=== PATIENT | male | born 1945 | race Caucasian/White ===

== ENCOUNTER 2018-12-04 09:52 | Inpatient (IN) | payer OTHER ==
[~2018-12-04] VITALS: Ht 182.9 cm; Wt 90.3 kg
--- NOTE | ~2018-12-04 | CON ---
[facility] [address] [place] [address] CONSULTATION Name: ANTONIA HUANG Room: [address] IN M.R.#: [id number] Admission: 12/04/18 Attend Phys: Suhas Olivo Discharge: 12/05/18 Date of : 49 Report #: [id number] THIS REPORT FOR: //name// CC: Donn Duran DATE OF SERVICE: 12/05/2018 CONSULTING PHYSICIAN: Dr. Olivo and Dr. Van. REASON FOR NEPHROLOGY CONSULTATION: End-stage renal disease, for maintenance of hemodialysis. REASON FOR ADMISSION: High INR. HISTORY OF PRESENT ILLNESS: This is a 73-year-old male with stage 4 pancreatic cancer, status post a few runs of gemcitabine that finally led to renal failure and has been on dialysis at least for the last month or so, came in when his home health checked his INR and was found to be 6.6. This morning, the patient refused dialysis. His regular dialysis days are Sunday, Sunday, Sunday and he missed his dialysis yesterday because he had to come to the hospital. There was no acute need for dialysis last evening, so we came to evaluate him this morning and there was plan to dialyze him this morning, but his and daughter are at his bedside and the patient himself as well ready for hospice and just to stay comfortable and not to do any dialysis. He has a left IJ tunneled dialysis catheter. ALLERGIES: CODEINE. REVIEW OF SYSTEMS: As mentioned in history of present illness. He is feeling alright this morning having his breakfast. HOME MEDICATIONS: Include Tylenol, amlodipine, atorvastatin, calcium carbonate, cefazolin, insulin lispro, vitamin B complex, oxycodone, sevelamer, sennosides, lidocaine, zolpidem, venlafaxine. PAST MEDICAL AND SURGICAL HISTORY: Include anxiety, neuropathy, hyperlipidemia, end-stage renal disease, malignant neoplasm of large intestine and rectum, diabetes type 2, disk degeneration, hyponatremia, acute kidney injury, has been on hemodialysis, cellulitis, unsteady gait, pancreatic cancer stage 4, infectious myositis, MRSA infection, generalized weakness, osteomyelitis right arm. FAMILY HISTORY: Noncontributory. SOCIAL HISTORY: The patient lives at home. No alcohol [place] [id number] CONSULTATION Name: ANTONIA HUANG Room: [address]#: [id number] Admission: 12/04/18 Attend Phys: Suhas Olivo Discharge: 12/05/18 Date of : 49 Report #: [id number] smoking. PHYSICAL EXAMINATION: VITAL SIGNS: Blood pressure is 119/74, respiratory rate is 19, pulse rate 56, temperature 36.8, pulse ox 97%. He is on room air. GENERAL: He is awake, alert and oriented x 3. HEAD: Atraumatic, normocephalic. EYES: Normal conjunctivae. EARS, NOSE, AND THROAT: Mucous membranes are moist. NECK: There is no JVD. CHEST: Bilaterally clear to auscultation anteriorly, no crackles or wheezing. CARDIOVASCULAR: S1, S2 normal. No murmurs are noted. ABDOMEN: Soft, nondistended, nontender. No masses felt. EXTREMITIES: Lower extremities, no edema. NEUROLOGIC: Grossly function seems to be intact. PSYCHIATRIC: Mood seems to be towards normal side. LABORATORY DATA: Hemoglobin is 9.7, potassium is 4.0 and other labs were reviewed. IMAGING: Chest x-ray was reviewed. ASSESSMENT: 1. Acute kidney injury, needing hemodialysis. This happened after chemotherapy and radiation for pancreatic cancer. 2. Stage 4 pancreatic cancer. 3. Supratherapeutic INR. 4. Stool for occult blood positive. PLAN: The patient's family as well as the patient himself has decided to stop dialysis and lean towards comfort measures and palliative care. I will respect their wishes and I think this is an appropriate decision at this point for him. We will sign off, but please call with any questions. Discussed with the patient's family and the patient's nurse. By: [id number] Thomas MD /nt
[~2018-12-04 09:52] MED LIST: AMBIEN 5 MG TABL5 M1 PO; ETODOLAC500 MG PO; GABAPENTIN 100100 MG PO; VENLAFAXIN75 MG/1 T2 PO
[2018-12-04 09:53] VITALS: BP 115/72
[2018-12-04] MEDS ORDERED: TYLENOL325 MG PO (10:14)
[2018-12-04] MEDS ORDERED: NORVASC10 MG PO (10:16)
[2018-12-04] MEDS ORDERED: ATORVASTATIN CA40 MG PO (10:16)
[2018-12-04 10:17] LABS: ABSOLUTE BASOPHILS 0.1 thou/uL (0.0-0.2); ABSOLUTE EOSINOPHILS 0.1 thou/uL (0.0-0.7); ABSOLUTE LYMPHOCYTES 0.7 thou/uL (0.8-5.3); ABSOLUTE MONOCYTES 0.8 thou/uL (0.0-1.2); ABSOLUTE NEUTROPHILS 8.2 thou/uL (1.6-8.1); BASOPHILS 0.5 %; EOSINOPHILS 1.5 %; HEMATOCRIT 30.1 % (42.0-52.0); HEMOGLOBIN 9.7 gm/dL (14.0-18.0); LYMPHOCYTES 7.3 %; MCH 28.1 pg (26.0-34.0); MCHC 32.2 g/dL (28.0-37.0); MCV 87.4 fL (80.0-100.0); MONOCYTES 8.4 %; MPV 7.9 fl. (7.2-11.1); NUCLEATED RBCS 0 /100WBC; PLATELET COUNT* 333 thou/uL (150-400); POLYS 82.3 %; RBC 3.44 mil/uL (4.50-6.00); RDW-CV 17.4 % (10.5-14.5); WBC 9.9 thou/uL (4.0-11.0)
[2018-12-04] MEDS ORDERED: TUMS PO (10:17)
[2018-12-04] MEDS ORDERED: ANCEF 1GM1 GM/50 M1 IVPB (10:18)
[2018-12-04] MEDS ORDERED: HUMALOG100 UNIT/1 SUBQ (10:18)
[2018-12-04] MEDS ORDERED: NEPHPLEX RX TA1 EACH PO (10:20)
[2018-12-04] MEDS ORDERED: OXYCODONE HCL 55 MG PO (10:21)
[2018-12-04] MEDS ORDERED: RENVELA800 MG PO (10:21)
[2018-12-04 10:22] LABS: ANION GAP 14 mmol/L (7-16); BUN 52 mg/dL (7-18); CHLORIDE 98 mmol/L (98-107); CO2 28 mmol/L (21-32); CREATININE 6.5 mg/dL (0.6-1.3); GLUCOSE 88 mg/dL (70-99); SODIUM 140 mmol/L (136-145)
[2018-12-04] MEDS ORDERED: LIDOCAINE PAIN1 EACH INTRADERM (10:22)
[2018-12-04] MEDS ORDERED: SENNA8.6 MG PO (10:22)
[2018-12-04 10:27] LABS: ALKALINE PHOSPHATASE 540 U/L (46-116); SGOT 56 U/L (15-37); TOTAL BILIRUBIN 0.5 mg/dL (<0.1-1.0); TOTAL PROTEIN 6.4 g/dL (6.4-8.2)
[2018-12-04 10:39] LABS: INR 3.9; PROTIME 39.5 Seconds (9.20-11.50)
[2018-12-04 10:58] LABS: BE 0.4 mmol/L (-2 to +3); PCO2 39.3 mmHg (35.0-45.0); PO2 69.1 mmHg (75.0-100.0); pH 7.418 (7.340-7.450)
[2018-12-04 14:04] LABS: SGPT < 6 U/L (30-65)
[2018-12-04 14:05] VITALS: BP 114/71
[2018-12-04 14:23] VITALS: BP 122/66
--- NOTE | 2018-12-04 15:37 | EKG ---
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 : 1945 Requested By: Katina Olivo Order Number: [id number] MD: Gage Ryan Measurements Intervals Deal Rate: 89 P: 3 MA: 118 QRS: 38 QRSD: 170 T: 2 QT: 404 QTc: 492 Interpretive Statements Sinus rhythm Atrial premature complexes Borderline short MA interval Right bundle branch block Compared to ECG 09/18/2016 12:56:12 Atrial premature complex(es) now present Atrial abnormality no longer present Electronically Signed On 12-04-2018 15:37:32 CDT by Gage Ryan [email or web address] <ELECTRONICALLY SIGNED> By: Gage Ryan MD, [facility] 12/04/18 1537 [id number] Gage Ryan MD, [facility] /EPI
--- NOTE | 2018-12-04 16:52 | NUR ---
PATIENT CAME TO THE FLOOR FROM THE ER VIA CART AND WAS SLID OVER TO HOSPITAL BED BY NURSES. VITAL SIGNS STABLE ON 2 LITERS OF OXYGEN THROUGH NASAL CANNULA. NO COMPLAINTS OF PAIN AT THIS TIME. ROOM ORIENTATION AND ADMISSION ASSESSMENT DONE. QUESTIONS ANSWERED FOR PATIENT AND SON. BED ALARM IS ON, CALL LIGHT IS IN REACH, WILL CONTINUE TO [place].
--- NOTE | 2018-12-04 17:42 | NUR ---
PATIENT IS ALERT AND ORIENTED TODAY. NO COMPLAINTS OF PAIN SINCE COMING TO THE FLOOR. VITAL SIGNS STABLE ON 2 LITERS OF OXYGEN THROUGH NASAL CANNULA. FAMILY HAS BEEN AT BEDSIDE SINCE COMING TO THE FLOOR. CALL LIGHT IS IN REACH, WILL CONTINUE TO MONITOR.
[2018-12-04 21:10] VITALS: BP 135/60
--- NOTE | 2018-12-05 05:58 | NUR ---
PT ALERT AND ORIENTED. VSS ON RA. PT TOKK HIS SLEEPING MED AND SLEPT MOST OF THE NIGHT. FAMILY WITH PT BEGINING OF SHIFT. Q2 TURN. FALL PRECAUTION IN PLACE. CONTACT ISOLATION IN PLACE. CALL LIGHT WITHIN REACH. HOURLY ROUNDINGS MADE. WILL CONTINUE PLAN OF CARE.
[2018-12-05 09:00] VITALS: BP 119/68
--- NOTE | 2018-12-05 12:25 | NUR ---
TRIXIE met with Catherine, nurse from [facility], who had just met with pt and pt family. Catherine informed SW that pt wishes are to return home today with Hospice, pt wants port removed and OHDNR. TRIXIE met with pt and pt family and confirmed pt dc plan and also spoke with Dr Van. TRIXEI faxed referral info, dc orders, and needed paperwork to hospice. TRIXIE called and discussed pt readiness to dc, had to leave message and awaiting call back to arrange time to arrange ambulance so that pt/family, ambulance and hospice care agency will be able to arrive at pt home at the same time.
--- NOTE | 2018-12-05 12:55 | NUR ---
P.T. ORDERS RECEIVED. CHART REVIEWED. SPOKE WITH NSG WHO INDICATED PT TO DISCHARGE HOME WITH HOSPICE. WILL DEFER EVAL AND REMOVE PT FROM [facility] DUE TO PENDING DISCHARGE WITH HOSPICE.
[2018-12-05 13:17] VITALS: BP 119/74
[2018-12-05] MEDS ORDERED: DURAGESIC1 EAC4 TRANSDERM (14:02)
[2018-12-05] MEDS ORDERED: OXYCODONE HCL 55 MG PO (14:04)
[2018-12-05 14:05] VITALS: BP 119/74
[2018-12-05 14:08] VITALS: BP 119/74
[2018-12-05 15:11] VITALS: BP 119/74
--- NOTE | 2018-12-05 15:14 | NUR ---
PATIENT IS ALERT AND ORIENTED TODAY VERY PLEASANT. VITAL SIGNS STABLE ON ROOM AIR. PATIENT REFUSED DIALYSIS TODAY AND HAS DECIDED TO GO HOME WITH HOSPICE CARE. DISCHARGE INSTRUCTIONS AND PRESCRIPTIONS GIVEN TO PATIENT AND FAMILY. LEFT VIA AMBULANCE CART TO HOME WITH HOSPICE CARE.
[2018-12-05 15:17] VITALS: BP 119/74
--- NOTE | 2018-12-06 16:17 | NUR ---
PT. DISCHARGED HOME WITH HOSPICE CARE PRIOR TO O.T. EVAL. PLEASE ORDER HOME HEALTH O.T. SAFETY EVAL IF NEEDED.
== END 2018-12-05 15:12 | disposition hospice, home (50) | DRG 435 ==
LOC: M.ERS 09:52 → M.TBA-ER 11:13 → M.3W 11:13
PROVIDERS: Personal Emergency Response Attendant; ADMIT Internal Medicine
DX: C25.9 Malignant neoplasm of pancreas, unspecified (principal); E43 Unspecified severe protein-calorie malnutrition; N18.6 End stage renal disease; I12.0 Hypertensive chronic kidney disease with stage 5 chronic kidney disease or end stage renal disease; D68.59 Other primary thrombophilia; N17.9 Acute kidney failure, unspecified; F41.9 Anxiety disorder, unspecified; E11.40 Type 2 diabetes mellitus with diabetic neuropathy, unspecified; E78.5 Hyperlipidemia, unspecified; R62.7 Adult failure to thrive; K75.9 Inflammatory liver disease, unspecified; Z99.2 Dependence on renal dialysis; Z86.14 Personal history of Methicillin resistant Staphylococcus aureus infection; Z88.6 Allergy status to analgesic agent; Z68.27 Body mass index [BMI] 27.0-27.9, adult; Z87.891 Personal history of nicotine dependence